=== PATIENT | female | born 1975 | race Asian ===

== ENCOUNTER 2022-03-07 05:07 | Inpatient (IN) | payer OTHER ==
[~2022-03-07] VITALS: Ht 172.7 cm; Wt 68.0 kg
[2022-03-07] MEDS ORDERED: KETOROLAC 60MG/2ML VIAL IM STA (05:38)
[2022-03-07] MEDS ORDERED: ONDANSETRON HCL 4MG/2ML INJ IV STA (05:38)
[2022-03-07] MEDS ORDERED: SODIUM CHLORIDE 0.9% 1,000 ML IV ONE (05:45)
[2022-03-07 05:58] LABS: BASOPHILS % 0.2 % (0.0-2.0); EOSINOPHILS % 0.1 % (0.0-5.0); HEMOGLOBIN. 13.5 g/dL (12.0-16.0); LYMPHOCYTES % 8.1 % (20.0-50.0); MEAN CORPUSCULAR HEMOGLOBIN 29.8 pg (28.0-32.0); MEAN CORPUSCULAR VOLUME 90.5 fL (81.0-99.0); MEAN PLATELET VOLUME 7.9 fl (7.4-10.4); MONOCYTES % 2.4 % (2.0-8.0); NEUTROPHILS % 89.2 % (40.0-76.0); PLATELET 354 x1000/uL (130-400); RED BLOOD CELL COUNT 4.53 mill/uL (4.2-5.4); RED CELL DISTRIBUTION WIDTH 12.9 % (11.6-14.6)
[2022-03-07] MEDS ORDERED: MORPHINE SULFATE 4 MG/ML CPJ (NOT FOR IM USE) IV ONE ×2 (06:00→13:15)
[2022-03-07 06:01] LABS: CHLORIDE 105 mEq/L (98-107)
[2022-03-07 06:04] LABS: PROTHROMBIN TIME 10.7 sec (9.6-11.0)
[2022-03-07 06:06] LABS: HCG SCREEN NEGATIVE
[2022-03-07 09:06] LABS: CLARITY URINE CLEAR (CLEAR); COLOR URINE YELLOW (YELLOW); KETONES URINE TRACE (NEGATIVE); LEUKOCYTE ESTERASE URINE NEGATIVE (NEGATIVE); NITRITE URINE NEGATIVE (NEGATIVE); OCCULT BLOOD URINE NEGATIVE (NEGATIVE); PROTEIN URINE 1+ (NEGATIVE); SPECIFIC GRAVITY URINE 1.026 (1.005-1.030)
[2022-03-07] MEDS ORDERED: MORPHINE SULFATE 4 MG/ML CPJ (NOT FOR IM USE) IV SCH (11:00)
[2022-03-07] MEDS: CEFTRIAXONE 1 G PREMIX 50 ML IV NR ×2 (12:05→13:16)
[2022-03-07] MEDS ORDERED: PROPOFOL 200MG/20ML VIAL IV ONE (14:07)
[2022-03-07] MEDS ORDERED: MIDAZOLAM HCL 2 MG/2 ML VIAL ONE (14:08)
[2022-03-07] MEDS ORDERED: ONDANSETRON HCL 4MG/2ML INJ ONE (15:02)
[2022-03-07] MEDS ORDERED: CEFAZOLIN SODIUM 1000MG/VIAL ONE (15:02)
[2022-03-07] MEDS ORDERED: FENTANYL CITRATE/PF 50MCG/ML 2ML VIAL ONE ×2 (15:02→15:40)
[2022-03-07] MEDS ORDERED: DEXAMETHASONE 4MG/ML 1ML VIAL ONE (15:02)
[2022-03-07] MEDS ORDERED: LIDOCAINE HCL 1% 10 MG/ML 10ML VIAL ONE (15:02)
[2022-03-07] MEDS ORDERED: SUCCINYLCHOLINE CHLORIDE 200MG/10ML IV ONE (15:03)
[2022-03-07] MEDS ORDERED: ROCURONIUM BROMIDE 10MG/ML VIAL 5ML IV ONE (15:03)
[2022-03-07] MEDS ORDERED: HYDROMORPHONE HCL/PF 2MG/ML CPJ IV PRN (15:45)
[2022-03-07] MEDS ORDERED: ATROPINE SULFATE 0.4MG/ML VIAL IV PRN (15:45)
[2022-03-07] MEDS ORDERED: SKIN ADHESIVE 0.7 GM EA TOP ONE (16:18)
[2022-03-07] MEDS ORDERED: NALOXONE HCL 0.4MG/ML VIAL IV PRN (16:45)
[2022-03-07] MEDS ORDERED: IBUPROFEN 800MG TABLET PO PRN (16:45)
[2022-03-07] MEDS: FENTANYL CITRATE/PF 50MCG/ML 2ML VIAL IV PRN ×4 (17:46→20:00)
[2022-03-07] MEDS ORDERED: GABA-529 PO (21:28)
[2022-03-07] MEDS ORDERED: SERT-112 PO (21:28)
[2022-03-07] MEDS ORDERED: POTASSIUM CHLORIDE 20MEQ TABLET SR PO NR (21:45)
[2022-03-07] MEDS: MORPHINE SULFATE 4 MG/ML CPJ (NOT FOR IM USE) IV PRN (22:30)
[2022-03-07] MEDS: DEXT 5%/LACTATED RINGERS 1,000 ML IV SCH (22:31)
[2022-03-08] VITALS (7 sets, daily range): BP systolic 93–114; BP diastolic 51–70
[2022-03-08] MEDS: MORPHINE SULFATE 4 MG/ML CPJ (NOT FOR IM USE) IV PRN ×3 (03:13→09:07)
[2022-03-08] MEDS: GABAPENTIN 100MG CAPSULE PO PRN (03:39)
[2022-03-08] MEDS ORDERED: SERTRALINE HCL 100MG TABLET PO NR (03:45)
[2022-03-08] MEDS: DEXT 5%/LACTATED RINGERS 1,000 ML IV SCH ×3 (06:00→21:38)
[2022-03-08] MEDS ORDERED: SERTRALINE HCL 100MG TABLET PO SCH (09:00)
[2022-03-08 11:20] LABS: BASOPHILS % 0.3 % (0.0-2.0); EOSINOPHILS % 0.2 % (0.0-5.0); HEMATOCRIT. 33.6 % (36.0-48.0); HEMOGLOBIN. 11.1 g/dL (12.0-16.0); LYMPHOCYTES % 26.5 % (20.0-50.0); MEAN CORPUSCULAR HEMOGLOBIN 30.4 pg (28.0-32.0); MEAN CORPUSCULAR VOLUME 92.3 fL (81.0-99.0); MEAN PLATELET VOLUME 7.7 fl (7.4-10.4); MONOCYTES % 9.3 % (2.0-8.0); NEUTROPHILS % 63.7 % (40.0-76.0); PLATELET 284 x1000/uL (130-400); RED BLOOD CELL COUNT 3.64 mill/uL (4.2-5.4); RED CELL DISTRIBUTION WIDTH 13.2 % (11.6-14.6)
[2022-03-08 11:30] LABS: CHLORIDE 110 mEq/L (98-107)
[2022-03-08] MEDS: IBUPROFEN 800MG TABLET PO PRN ×2 (14:47→21:53)
[2022-03-08] MEDS: MORPHINE SULFATE 2 MG/ML CPJ (NOT FOR IM USE) IV PRN (17:00)
[2022-03-09] MEDS: MORPHINE SULFATE 4 MG/ML CPJ (NOT FOR IM USE) IV PRN ×2 (00:10→04:38)
[2022-03-09 04:00] VITALS: BP 117/63
[2022-03-09] MEDS: DEXT 5%/LACTATED RINGERS 1,000 ML IV SCH ×3 (04:46→21:23)
[2022-03-09 08:00] VITALS: BP 120/56
[2022-03-09] MEDS: SERTRALINE HCL 100MG TABLET PO SCH (08:42)
[2022-03-09] MEDS: MORPHINE SULFATE 2 MG/ML CPJ (NOT FOR IM USE) IV PRN (08:43)
[2022-03-09 12:00] VITALS: BP 121/76
[2022-03-09] MEDS: HYDROCODONE/ACETAMINOPHEN 5/325MG TABLET PO PRN ×2 (13:01→19:25)
[2022-03-09 16:00] VITALS: BP 110/57
[2022-03-09] MEDS: DOCUSATE SODIUM 100MG CAPSULE PO SCH (20:00)
[2022-03-10] VITALS (7 sets, daily range): BP systolic 98–132; BP diastolic 61–80
[2022-03-10] MEDS: HYDROCODONE/ACETAMINOPHEN 5/325MG TABLET PO PRN ×4 (00:22→16:50)
[2022-03-10] MEDS: GABAPENTIN 100MG CAPSULE PO PRN ×2 (00:25→04:33)
[2022-03-10] MEDS ORDERED: IBUP-2030 PO (04:08)
[2022-03-10] MEDS: DEXT 5%/LACTATED RINGERS 1,000 ML IV SCH ×2 (04:38→13:25)
[2022-03-10] MEDS: DOCUSATE SODIUM 100MG CAPSULE PO SCH ×2 (08:45→16:50)
[2022-03-10] MEDS: SERTRALINE HCL 100MG TABLET PO SCH (08:45)
[2022-03-10] MEDS: IBUPROFEN 800MG TABLET PO PRN (20:59)
== END 2022-03-10 21:05 | disposition home or self-care (01) | DRG 742 ==
LOC: ER 05:07 → 6WST 13:33 → EDBEDREQTM 13:37 → EDBEDREQ 13:37 → ENRESERV 14:30 → EDBEDREQ 15:01 → EDBEDREQTM 15:01 → 6EST 21:30 → 6WST 21:33 → 6EST 22:02
PROVIDERS: ADMIT Obstetrics & Gynecology; ATTEND Obstetrics & Gynecology
PROC: 0UJ34ZZ Inspection of Ovary, Percutaneous Endoscopic Approach (ICD-10-PCS; principal; 2022-03-07)
PROC: 0UB10ZZ Excision of Left Ovary, Open Approach (ICD-10-PCS; 2022-03-07)
PROC: 0UJD4ZZ Inspection of Uterus and Cervix, Percutaneous Endoscopic Approach (ICD-10-PCS; 2022-03-07)
DX: D25.2 Subserosal leiomyoma of uterus (principal); N83.53 Torsion of ovary, ovarian pedicle and fallopian tube; D27.1 Benign neoplasm of left ovary; Z20.822 Contact with and (suspected) exposure to COVID-19; A05.9 Bacterial foodborne intoxication, unspecified; R73.03 Prediabetes; F32.A Depression, unspecified; Z80.3 Family history of malignant neoplasm of breast; Z82.3 Family history of stroke; Z83.3 Family history of diabetes mellitus; Z53.31 Laparoscopic surgical procedure converted to open procedure
CPT/HCPCS: 36415; 74176; 76830; 76856; 80048; 80053; 81003; 84132; 84703; 85025; 86304; 87426; 88302; 88304; 99291; C9803; J0330; J0690; J0696; J1100; J1885; J2250; J2270; J2405; J2704; J3010; J3490; J7030; J7121